=== PATIENT | female | born 1955 ===

== ENCOUNTER → 2017-11-21 17:11 | Outpatient (CLI) | payer OTHER ==
[~2017-11-21] VITALS: Ht 152.4 cm; Wt 76.7 kg
[~2017-11-21 17:11] MED LIST: PREMARIN1.25 MG
== END | disposition home or self-care (01) ==
LOC: PPHC 17:11
DX: J06.9 Acute upper respiratory infection, unspecified (principal); J32.8 Other chronic sinusitis